=== PATIENT | female | born 1995 | race Caucasian/White ===

== ENCOUNTER 2022-03-07 19:51 | Emergency (ER) | payer SELFPAY ==
--- NOTE | 2022-03-07 19:51 | NUR ---
Patient refused to be seen, does not wish to proceed with medical care recommended by Dr Choi. Patient given information related to possible complications, up to and including , which could occur as a result of leaving hospital at this time. Patient verbalizes understanding of risks involved leaving against medical advice. Patient has signed AMA form.
== END 2022-03-07 20:00 ==
LOC: SED 19:51
DX: Z02.89 Encounter for other administrative examinations (principal)
CPT/HCPCS: 99283